=== PATIENT | female | born 1970 | race Caucasian/White ===

== ENCOUNTER → 2017-01-23 | Outpatient (CLI) | payer OTHER ==
--- NOTE | 2017-01-23 14:46 | KCIC ---
CHEST PA LATERAL History: PPD.. Comparison: None. Findings: Cardiomediastinal silhouette is within normal limits. No focal new airspace consolidation. No pneumothorax identified. No evidence of pleural effusion. Impression: No radiographic evidence of active airspace consolidation. Electronically signed by: Mauricio Beyer MD (01/23/2017 2:43 PM) [facility]
--- NOTE | 2017-01-24 08:21 | KCIC ---
Bilateral digital screening mammograms: Reason for examination: Routine screening. New baseline. The skin and nipples show no abnormalities. No abnormal axillary lymph nodes are seen. The breast parenchyma is heterogeneously dense. (Breast density: Category C.) There are small nodular densities suggested bilaterally at approximately the right 4:00 C position and left 9:00 C and 11:00 C positions. Further evaluation with ultrasound is recommended. There are no suspicious calcifications or architectural distortion. Impression: Nodular densities bilaterally which may represent cysts. Recommend further evaluation with ultrasound. Your patient's mammogram demonstrates that she has dense breast tissue (breast density category C or D), which could hide abnormalities, and if she has other risk factors for breast cancer that have been identified, she might benefit from supplemental screening tests that may be suggested by you as her ordering physician. Dense breast tissue, in and of itself, is a relatively common condition. Therefore, this information is not provided to cause undue concern, but rather to raise your awareness and to promote discussion with your patient regarding the presence of other risk factors, in addition to dense breast tissue. Your patient's mammography results will be sent to her. BI-RAD Category 0: Incomplete. Ultrasound follow-up is recommended. "Our facility is accredited by the [employer] Mammography [employer]." This patient's information has been entered into a reminder system for the patient to be notified with the results of her examination and a target date for the next mammogram. Electronically signed by: Vale Blanco MD (01/24/2017 8:18 AM) [id number]
== END | disposition home or self-care (01) ==
LOC: KCIC MAMMO 13:49
PROVIDERS: ATTEND Nurse Practitioner Family
DX: Z12.31 Encounter for screening mammogram for malignant neoplasm of breast (principal)
CPT/HCPCS: 71020; G0202; 77067

== ENCOUNTER → 2017-01-29 | Outpatient (CLI) | payer OTHER ==
--- NOTE | 2017-01-29 10:07 | RAD ---
Bilateral targeted breast ultrasound Indication: Bilateral breast abnormalities seen on previous mammogram from 01/23/2017 Technique: Grayscale and Doppler Doppler ultrasound images of the bilateral breasts. Comparison: Previous mammogram from 01/23/2017 Findings: Right breast: There is an irregular shaped hypoechoic lesion in the right breast at 4:00 position approximately 9 mm from the skin (image 4) demonstrating angular margins with no definite posterior shadowing. No calcifications are seen in this mass. No surrounding architectural distortion. It is not clear whether this corresponds to previously seen abnormality on the mammogram. Left breast: Bilobed hypoechoic well circumscribed lesions are seen in the left breast (image 27) with central high echogenicity likely intraparenchymal lymph nodes at 9:30 position approximately 5 cm from the nipple. This likely corresponds to previously seen left breast abnormality at 9:00 position. There is an oval-shaped hypoechoic mass within left breast at 12:00 position with central linear echogenic focus suggesting calcification. This lesion has well-circumscribed margins, is wider than taller without posterior shadowing. Impression: 1. Right breast abnormality as described above best seen on only antiradial images. It is not clear whether this is artifactual or a lesion. Follow-up targeted ultrasound in 3 months recommended. 2. Left breast abnormalities as discussed above. The abnormality at 9:30 position likely represents intraparenchymal lymph nodes The abnormality at 12:00 position has predominantly benign features. Follow-up targeted left breast ultrasound in 3 months. BI-RADS 3: Probably benign. Follow-up ultrasounds as described above.
== END | disposition home or self-care (01) ==
LOC: KCIC US 08:33
PROVIDERS: ATTEND Nurse Practitioner Family
DX: N63.0 Unspecified lump in unspecified breast (principal)
CPT/HCPCS: 76641

== ENCOUNTER 2017-07-25 19:23 | Emergency (ER) | payer OTHER ==
[2017-07-25 21:02] LABS: BILIRUBIN,URINE NEGATIVE (NEG); GLUCOSE,URINE NEGATIVE (NEG); NITRITE,URINE NEGATIVE (NEG); PROTEIN,URINE >=300 mg/dL (NEG-TRACE); UROBILINOGEN,URINE 0.2 mg/dL (0.2 mg/dL)
[2017-07-25 21:05] LABS: COLOR,URINE RED
[2017-07-25 21:06] LABS: CLARITY,URINE BLOODY
[2017-07-25 21:07] LABS: BACTERIA,URINE FEW /HPF (0-FEW); RBC,URINE TNTC /HPF (0-2); WBC,URINE TNTC /HPF (0-4)
[2017-07-25 21:08] LABS: SQUAMOUS EPITHELIAL CELL,UR FEW /LPF
== END 2017-07-25 20:15 | disposition home or self-care (01) ==
LOC: ER 19:23
DX: N39.0 Urinary tract infection, site not specified (principal)
CPT/HCPCS: 81001; 87086; 99284

== ENCOUNTER → 2019-12-08 | Outpatient (CLI) | payer OTHER ==
[2017-07-25 19:45] VITALS: BP 121/74
[~2019-12-08] MED LIST: SULF1TAB24 PO
--- NOTE | 2019-12-08 18:52 | KCIC ---
Bilateral digital screening mammograms: Reason for examination: Routine screening. Comparison is made to previous study dated 01/23/2017. Interpretation was made with the benefit of CAD. The skin and nipples show no abnormalities. No abnormal axillary lymph nodes are seen. The breast parenchyma is extremely dense. (Breast density: Category D.) There are no dominant masses, suspicious calcifications or architectural distortion. Impression: No evidence of malignancy. Recommend routine screening. Your patient's mammogram demonstrates that she has dense breast tissue (breast density category C or D), which could hide abnormalities, and if she has other risk factors for breast cancer that have been identified, she might benefit from supplemental screening tests that may be suggested by you as her ordering physician. Dense breast tissue, in and of itself, is a relatively common condition. Therefore, this information is not provided to cause undue concern, but rather to raise your awareness and to promote discussion with your patient regarding the presence of other risk factors, in addition to dense breast tissue. Your patient's mammography results will be sent to her. BI-RAD Category 1: Negative. "Our facility is accredited by the [employer]amm[employer]." This patient's information has been entered into a reminder system for the patient to be notified with the results of her examination and a target date for the next mammogram. Electronically signed by: Vale Blanco MD (12/08/2019 6:48 PM) [id number]
== END | disposition home or self-care (01) ==
LOC: KCIC MAMMO 13:44
PROVIDERS: ATTEND Family Medicine
DX: Z12.31 Encounter for screening mammogram for malignant neoplasm of breast (principal)
CPT/HCPCS: 77067

== ENCOUNTER → 2020-03-15 | Outpatient (CLI) | payer OTHER ==
[2017-07-25 19:45] VITALS: BP 121/74
--- NOTE | 2020-03-15 16:04 | KCIC ---
HIP BILATERAL WITH PELVIS DATE: 03/15/2020 12:00 AM INDICATION: Reason: Bilateral hip pain, Rt> Lt 1 yr. No known injury. / Spl. Instructions: / History: COMPARISON: None. FINDINGS: Bones: There is no evidence of acute fracture or dislocation. Joints: The joint spaces are normal. Miscellaneous: None. IMPRESSION: Normal exam Electronically signed by: Yrn Velazquez MD (03/15/2020 4:01 PM) [id number]
== END ==
LOC: KCIC 15:16
PROVIDERS: ATTEND Family Medicine
DX: M25.551 Pain in right hip (principal); M25.552 Pain in left hip
CPT/HCPCS: 73521

== ENCOUNTER → 2020-07-18 | Outpatient (CLI) | payer OTHER ==
[2017-07-25 19:45] VITALS: BP 121/74
[~2020-07-18] MED LIST changes: +BUPIVACAINE MPF 0.5% 10 ML VIAL. IJ ONE; +CONTRAST GIVEN. MC PRN; +GADOTERATE 7.5 MMOL/15ML VIAL. INT ART ONE; +IOHEXOL 300 MG/ML 50 ML VIAL. INT ART ONE; +LIDOCAINE 1% Multi-Dose 20 ML VIAL. ID ONE
--- NOTE | 2020-07-18 16:30 | KCIC ---
IR ARTHROGRAM LEFT HIP History: Reason: SEVERE LEFT HIP PAIN / PROCEDURE: The risks, alternatives, benefits of the procedure discussed with the patient. Written informed cons ent is obtained. A timeout is performed. Skin site was chosen under fluoroscopy. This area is prepped and draped in normal sterile fashion. 1% Lidocaine is used for superficial and deep local anesthesia. Using intermittent fluoroscopy, a 22 -gauge spinal needle is advanced into the joint space. Then a dilute gadolinium solution is instilled , total volume approximately 12 mL. The needle was removed. Hemostasis is achieved. The patient to lerated the procedure well. There is no immediate complication. Patient was transferred to MRI. Total fluoroscopy time 38 seconds. 1 fluoroscopic spot images. IMPRESSION: 1. Fluoroscopically guided left hip arthrogram prior to MRI. Electronically signed by: Gilson Horn DO (07/18/2020 4:28 PM) [id number]
--- NOTE | 2020-07-18 18:07 | KCIC ---
EXAMINATION: MR ARTHROGRAM LEFT HIP CLINICAL HISTORY: Left hip pain. Sharp pain and grinding in left hip, repetitive use. TECHNIQUE: Routine hip MRI arthrogram protocol. Procedural portion of the arthrogram reported kylee james. COMPARISON: Bilateral hip radiographs 03/15/2020 FINDINGS: Left Hip: Degenerative tearing in the anterior superior labrum. Multifocal low and high-grade partial -thickness chondral loss throughout the acetabulum and femoral head. No acute fracture. No avascular necrosis. Tendons: Within normal limits including the iliopsoas, hamstring, gluteal and rectus femoris tendons. Muscles: Within normal limits. Bones/Marrow: No acute fracture or suspicious marrow replacing lesion. IMPRESSION: [id number] partial thickness chondral wear in the left hip. Degenerative tearing in the anterior superior acetabular labrum. Electronically signed by: Ismael Dan DO (07/18/2020 6:05 PM) [id number]
== END | disposition home or self-care (01) ==
LOC: KCIC 14:14
PROVIDERS: ATTEND Nurse Practitioner Gerontology
DX: M25.552 Pain in left hip (principal); Z79.899 Other long term (current) drug therapy
CPT/HCPCS: 27093; 73722; 77002; A9575; J3490; Q9967; 73525

== ENCOUNTER → 2020-07-26 | Outpatient (CLI) | payer OTHER ==
[2017-07-25 19:45] VITALS: BP 121/74
[~2020-07-26] MED LIST changes: +0.9 % SODIUM CHLORIDE 10 ML DISP.SYRIN. ID ONE; -BUPIVACAINE MPF 0.5% 10 ML VIAL. IJ ONE; -CONTRAST GIVEN. MC PRN; +GADOTERATE 5 MMOL/10ML VIAL. INT ART ONE; -GADOTERATE 7.5 MMOL/15ML VIAL. INT ART ONE
--- NOTE | 2020-07-26 16:45 | KCIC ---
Right hip injection under fluoroscopy facilitate a MR arthrogram 07/26/2020 CLINICAL HISTORY: Right hip pain. TECHNIQUE: After the risks and benefits of the procedure were explained to the patient, written infor med consent was obtained. The skin surface of the anterior right hip was prepped and draped in steril e fashion. 1 percent lidocaine was used as a local anesthetic. Under fluoroscopic guidance a 22-gauge spinal needle was advanced into the anterior aspect of the right hip joint. 8 cc of a solution conta ining 5 cc of Omnipaque 300, 5 cc of 1 percent lidocaine, 10 cc normal saline and 0.1 cc of Clariscan were were injected through the needle into the right hip. Following this the needle was removed and hemostasis was achieved at the puncture site. A sterile bandage was placed on the skin puncture site. The patient tolerated the procedure well and there were no immediate complications. The patient was taken to MRI for further imaging. The total fluoroscopic time for this study is 36 seconds. 1 fluoros copic captured AP digital radiograph of the right hip was obtained. IMPRESSION: Technically successful fluoroscopically guided injection of the right hip to facilitate a MR arthrogram as discussed above. Electronically signed by: Stoney Pulido MD (07/26/2020 4:43 PM) [id number]
--- NOTE | 2020-07-27 09:01 | KCIC ---
EXAM: MR ARTHROGRAM RIGHT HIP DATE: 07/26/2020 7:47 PM INDICATION: symptoms COMPARISON: 03/15/2020 TECHNIQUE: Multiplanar, multisequence MR imaging of the right hip was performed following the adminis tration of intra-articular gadolinium contrast. FINDINGS: Iatrogenic distention of the right hip joint with gadolinium contrast, without synovial thickening/no dularity or definite joint body. Ligamentum teres is intact without nodularity or thickening. There is chondral thinning within the superior portion of the acetabulum with full-thickness defect m easuring 5 mm in transverse dimension and associated subchondral cyst. Contrast is seen partially extending into the superior labrum as well as the labral chondral junction from approximately the 11-12:00 position with associated labral deformity, consistent with labral te ar, likely degenerative type tear. Morphology: Proximal femoral angle is mildly increased measuring 140 degrees may be seen with coxa va lga. Normal acetabular anteversion. Normal alpha angle, 50 degrees. Periarticular tendons: Regional tendinous attachments are intact including hamstring, iliopsoas and g luteus medius tendons. Bone marrow: Bone marrow signal is normal. Negative fracture or AVN. Visceral pelvis: Incomplete survey of marginal visceral structures of the pelvis. Uterine fibroids ar e partially profiled. IMPRESSION: 1. Right hip joint osteoarthritis with regions of full-thickness cartilage defect superiorly with farnsworth bchondral cystic change with associated labral degenerative type tear superiorly. 2. Mildly increased proximal femoral angle may be seen with coxa valga. Normal alpha angle. On visua l evaluation of proximal femoral and acetabular morphology, otherwise grossly normal. 3. No fracture or osteonecrosis. Electronically signed by: Jaspreet Cespedes MD (07/27/2020 8:59 AM) [id number]
== END | disposition home or self-care (01) ==
LOC: KCIC 14:17
PROVIDERS: ATTEND Nurse Practitioner Gerontology
DX: M25.551 Pain in right hip (principal); M16.11 Unilateral primary osteoarthritis, right hip; D25.9 Leiomyoma of uterus, unspecified; Z79.899 Other long term (current) drug therapy
CPT/HCPCS: 27093; 73525; 73719; 77002

== ENCOUNTER → 2021-09-19 | Outpatient (CLI) | payer BC ==
[2017-07-25 19:45] VITALS: BP 121/74
[~2021-09-19] MED LIST changes: -0.9 % SODIUM CHLORIDE 10 ML DISP.SYRIN. ID ONE; -GADOTERATE 5 MMOL/10ML VIAL. INT ART ONE; -IOHEXOL 300 MG/ML 50 ML VIAL. INT ART ONE; -LIDOCAINE 1% Multi-Dose 20 ML VIAL. ID ONE
--- NOTE | 2021-09-19 14:09 | KCIC ---
Bilateral digital screening mammograms: Reason for examination: Routine screening. Comparison is made to previous studies dated 12/08/2019 and 01/23/2017. Interpretation was made with the benefit of CAD. The skin and nipples show no abnormalities. No abnormal axillary lymph nodes are seen. The breast par enchyma is extremely dense. (Breast density: Category D.) There are no dominant masses, suspicious ca lcifications or architectural distortion. Impression: No evidence of malignancy. Recommend routine screening. Your patient's mammogram demonstrates that she has dense breast tissue (breast density category C or D), which could hide abnormalities, and if she has other risk factors for breast cancer that have bee n identified, she might benefit from supplemental screening tests that may be suggested by you as her ordering physician. Dense breast tissue, in and of itself, is a relatively common condition. Therefo re, this information is not provided to cause undue concern, but rather to raise your awareness and t o promote discussion with your patient regarding the presence of other risk factors, in addition to d ense breast tissue. Your patient's mammography results will be sent to her. BI-RAD Category 1: Negative. "Our facility is accredited by the [employer] Mammography [employer]." This patient's information has been entered into a reminder system for the patient to be notified wit h the results of her examination and a target date for the next mammogram. Electronically signed by: Vale Blanco MD (09/19/2021 2:06 PM) [id number]
== END ==
LOC: KCIC MAMMO 12:24
PROVIDERS: ATTEND Family Medicine
DX: Z12.31 Encounter for screening mammogram for malignant neoplasm of breast (principal)
CPT/HCPCS: 77067